=== PATIENT | female | born 1995 | race Caucasian/White ===

== ENCOUNTER 2020-01-20 16:11 | Emergency (ER) | payer OTHER ==
[2020-01-20 16:23] VITALS: BMI 24.2
--- NOTE | 2020-01-20 17:45 | PDOC ---
History of Present Illness - General Chief Complaint: Nausea/Vomiting Stated Complaint: ADB PAIN Time Seen by Provider: 01/20/20 17:45 History Source: Patient Exam Limitations: No Limitations - History of Present Illness Initial Comments: 01/20/20 17:58 24F with PMH of kidney stones presents to the ED with intermittent episodes of sharp/stabbing right sided abdominal pain that radiates to the right back/flank and started Wednesday. The episodes of pain are associated with nausea and vomiting. Denies fevers/chills, dysuria, diarrhea/constipation, abnormal vaginal bleeding or discharge. PMH: as in HPI SH: see below Meds: control Allergies: NKDA Tob/Etoh/Rec drugs: alcohol occasionally, neg x2 ROS GENERAL/CONSTITUTIONAL: No fever or chills. No weakness. HEENT: No change in vision. No ear pain or discharge. No sore throat. CARDIOVASCULAR: No chest pain or shortness of breath RESPIRATORY: No cough, wheezing, or hemoptysis. GASTROINTESTINAL: +nausea, vomiting; no diarrhea or constipation. GENITOURINARY: No dysuria, frequency, or change in urination. MUSCULOSKELETAL: No joint or muscle swelling or pain. No neck or back pain. SKIN: No rash NEUROLOGIC: No headache, vertigo, loss of consciousness, or change in strength/sensation. ENDOCRINE: No increased thirst. No abnormal weight change HEMATOLOGIC/LYMPHATIC: No anemia, easy bleeding, or history of blood clots. ALLERGIC/IMMUNOLOGIC: No hives or skin allergy. PE GENERAL: Awake, alert, and fully oriented; no acute distress HEAD: No signs of trauma, normocephalic, atraumatic EYES: PERRLA, EOMI, sclera anicteric, conjunctiva clear ENT: Auricles normal inspection, hearing grossly normal, nares patent, moist mucosa, oropharynx clear without exudates. NECK: Normal ROM, supple, no LAD, JVD, or masses HEART: Regular rate and rhythm, normal S1/S2, no murmurs, rubs or gallops, peripheral pulses normal and equal bilaterally. LUNGS: No distress, speaks full sentences, clear to auscultation bilaterally ABDOMEN: Soft, nontender. No guarding, no rebound. No masses. neg bonds sign, no cva tenderness EXTREMITIES: Normal inspection, Normal range of motion, no edema. No clubbing or cyanosis. NEUROLOGICAL: Normal speech, no focal sensorimotor deficits SKIN: Warm, Dry, normal turgor, no rashes or lesions noted Assessment and Plan 1. kidney stones 2. ovarian torsion Bryan Rose, PGY1 Emergency Medicine Past History - Medical History Allergies/Adverse Reactions: Allergies Allergy/AdvReac Type Severity Reaction Status Date / Time No Known Allergies Allergy Verified 01/20/20 16:20 Home Medications: Ambulatory Orders Cephalexin Monohydrate [Keflex -] 500 mg PO BID 7 Days #14 capsule 01/20/20 Ibuprofen 600 mg PO PRN PRN #10 tablet 01/20/20 Ondansetron HCl [Zofran] 4 mg PO PRN PRN #3 tablet 01/20/20 - Reproductive History Is Patient Now?: No - Psycho-Social/Smoking History Smoking History: Never smoked Have you smoked in the past 12 months: No - Substance Abuse Hx (Audit-C & DAST Scrn) How often the patient has a drink containing alcohol: Monthly or less Number of drinks the patient has on a typical day: 1 or 2 How often the patient has six or more drinks on one occasion: Never Score: In Men: 4 or > Positive; In Women: 3 or > Positive: 1 Screen Result (Pos requires Nsg. Audit-10AR): Negative In the last yr the pt used illegal drug/Rx for NonMed reason: No Score: Yes response is considered Positive: 0 Screen Result (Positive result requires Nsg. DAST-10): Negative *Physical Exam - Vital Signs Last Vital Signs Temp Pulse Resp BP Pulse Ox 98.9 F 75 18 107/76 100 01/20/20 16:20 01/20/20 16:20 01/20/20 16:20 01/20/20 16:20 01/20/20 16:20 ED Treatment Course - LABORATORY CBC & Chemistry Diagram: 01/20/20 18:11 01/20/20 18:11 Medical Decision Making - Medical Decision Making 01/20/20 20:12 24F with PMH of kidney stones presents to the ED with intermittent right-sided abdominal and flank pain. No CVA tenderness, abdominal exam unimpressive. Pt given 30mg IV toradol and 4mg IV zofran. DDx: 1. kidney stone -> given hx/o stones, pain location and intermittent quality, will assess with UA and renal US initially to avoid radiation from CT scan -> 3+ blood on UA 2. ovarian torsion -> eval with TVUS -> pt didn't conset to TVUS, transabdominal ultrasound was done -> normal doppler flow of right ovary 3. appendicitis -> right sided abd pain but unimpressive exam, afebrile 01/20/20 21:07 Pt reported improvement of pain/nausea after medication. 01/20/20 22:36 Renal US showed mild right sided hydronephrosis. Transabdominal pelvic US showed normal doppler flow of right ovary w/o masses. Left ovary was not visualized, so size discrepency of ovaries wasn't able to be assessed. However, in the con text of right sided hydronephrosis, it's more likely that her clinical presentation is due to kidney stone and not ovarian torsion. Appendicits is less likely as she's not febrile, abdominal exam was unimpressive, she's able to tolerate fluids PO, and responding to analgesics. The UA demonstrates >1700 bacteria, but with a significant amount of epithelial cells. This is not a reliable sample and the pt doesn't have clinically correlating symptoms of UTI, however, in the setting of likely kidney stone will tx with antibiotics. Pt was offered the opportunity to repeat UA or treat with antibiotics and chose the latter. Pt stable for d/c and was advised to follow up with urology. Discharge - Discharge Information Problems reviewed: Yes Clinical Impression/Diagnosis: Kidney stone Condition: Stable Disposition: HOME - Admission No - Additional Discharge Information Prescriptions: Ibuprofen 600 mg PO PRN PRN #10 tablet PRN Reason: Pain Cephalexin Monohydrate [Keflex -] 500 mg PO BID 7 Days #14 capsule Ondansetron HCl [Zofran] 4 mg PO PRN PRN #3 tablet PRN Reason: Nausea - Follow up/Referral Referrals: Alvaro Mooney MD [Staff Physician] - - Patient Discharge Instructions Patient Printed Discharge Instructions: DI for Kidney Stones Additional Instructions: You were seen in the ED for right sided abdominal and back pain. In the ED you were evaluated with urinalysis, blood work, and ultrasound. Your results showed right kidney hydronephrosis, blood and bacteria in the urine, and normal ovaries. Your pain was likely due to kidney stones. There does not appear to be an acute need for immediate hospitalization. You are advised to follow up with your Primary Care Physician within 1 week. You were given a referral to urologist, Dr. Mooney. You were given a prescription for ibuprofen 600mg, zofran, and keflex. Return to the ED immediately if you experience fevers, worsening nausea/vomiting and inability to tolerate drinking fluids. - Post Discharge Activity
[2020-01-20] MEDS ORDERED: KETOROLAC TROMETHAMINE 60 MG/2 ML VIAL IVPB ONE (18:07)
[2020-01-20] MEDS ORDERED: ONDANSETRON 4 MG/2 ML VIAL IVPUSH ONE (18:07)
[2020-01-20 18:10] LABS: HCG,QUALITATIVE URINE Negative
[2020-01-20] MEDS ORDERED: KETOROLAC TROMETHAMINE 30 MG/1 ML VIAL ONE (18:14)
[2020-01-20 18:56] LABS: BASO % 0.2 % (0-2.0); HEMATOCRIT 42.7 % (32.4-45.2); HEMOGLOBIN 14.3 GM/dL (10.7-15.3); MCH 28.6 pg (25.7-33.7); MCHC 33.5 g/dl (32.0-36.0); MEAN CELL VOLUME 85.6 fl (80-96); MEAN PLT VOLUME 9.3 fl (7.5-11.1); MONO % 6.6 % (3.8-10.2); NEUT % 86.2 % (42.8-82.8); PLATELET COUNT 310 K/MM3 (134-434); RBC 4.98 M/mm3 (3.60-5.2); RDW 12.8 % (11.6-15.6); WHITE BLOOD COUNT 14.7 K/mm3 (4.0-10.0)
[2020-01-20 19:07] LABS: BILIRUBIN,TOTAL 0.5 mg/dL (0.2-1); BLOOD UREA NITROGEN 18.2 mg/dL (7-18); POTASSIUM 3.7 mmol/L (3.5-5.1); TOT PROT 8.2 g/dl (6.4-8.2)
[2020-01-20 19:54] LABS: EPI CELLS >36 /uL (0-25.1); HYALINE CASTS 6 /uL (0-3.1); PH,URINE 5.5 (5.0-8.0); URINE APPEARANCE CLOUDY; URINE BACTERIA 1759 /uL (0-1359); URINE BILIRUBIN NEGATIVE (NEGATIVE); URINE COLOR DK YELLOW; URINE GLUCOSE (UA) NEGATIVE (NEGATIVE); URINE KETONE 3+ (NEGATIVE); URINE LEUK ESTERASE NEGATIVE (NEGATIVE); URINE NITRITE NEGATIVE (NEGATIVE); URINE PROTEIN 1+ (NEGATIVE); URINE RBC 15 /uL (0-23.9)
[2020-01-20] MEDS ORDERED: SODIUM CHLORIDE 1,000 ML IV STA (20:37)
--- NOTE | 2020-01-20 21:40 | PDOC ---
Documentation entered by Lola Cordon SCRIBE, acting as scribe for Rajinder Moore MD. Rajinder Moore MD: This documentation has been prepared by the tishibeBravo Ana, SCRIBE, under my direction and personally reviewed by me in its entirety. I confirm that the documentation accurately reflects all work, treatment, procedures, and medical decision making performed by me. Attending Attestation - Resident Resident Name: Bryan Rose - ED Attending Attestation I have performed the following: I have examined & evaluated the patient, The case was reviewed & discussed with the resident, I agree w/resident's findings & plan, Exceptions are as noted - HPI HPI: 01/20/20 18:09 Patient is a 24 year old female with a significant past medical history of kidney stones who presents to the ED with abdominal pain with associates nausea and vomiting x3 days. Patient described her pain as a "sharp, stabbing sensation" which is predominantly on her right side and radiates to her right flank and backside. Patient denies: any other related symptoms. Allergies: NKDA - Physicial Exam PE: 01/20/20 21:38 EXAMINATION CONSTITUTIONAL: Well-appearing; well-nourished; in no apparent distress HEAD: Normocephalic; atraumatic EYES: PERRL; EOM intact ENMT: External appears normal; normal oropharynx NECK: Supple; non-tender; no cervical lymphadenopathy CARD: Normal S1, S2; no murmurs, rubs, or gallops RESP: Normal chest excursion with respiration; breath sounds clear and equal bilaterally; no wheezes, rhonchi, or rales ABD: Soft, non-distended; non-tender; no palpable organomegaly, no palpable hernias; + mild r cva ttp EXT: Normal ROM in all four extremities; non-tender to palpation; distal pulses intact SKIN: Warm, dry, no rash NEURO: No focal neurological deficiencies. - Medical Decision Making 01/20/20 21:38 Patient is a well-appearing 24-year-old female with a history of nephrolithiasis who presents with atraumatic right-sided abdominal pain, intermittent, associated with numerous episodes of nonbloody, nonbilious vomiting for the past several days. In the ER, patient is awake and alert, afebrile, nontoxic- appearing, with minimal right CVA tenderness only. CBC reveals mild leukocytosis. UA reveals microscopic hematuria with presence of bacteria. Differential diagnosis includes kidney stone versus pyelonephritis versus ovarian torsion versus ovarian cyst versus acute appendicitis. Will obtain ultrasound of right kidney and pelvis. Will administer IV fluids. Will reassess. Discharge - Discharge Information Problems reviewed: Yes Clinical Impression/Diagnosis: Kidney stone Condition: Stable Disposition: HOME - Additional Discharge Information Prescriptions: Ibuprofen 600 mg PO PRN PRN #10 tablet PRN Reason: Pain Cephalexin Monohydrate [Keflex -] 500 mg PO BID 7 Days #14 capsule Ondansetron HCl [Zofran] 4 mg PO PRN PRN #3 tablet PRN Reason: Nausea - Follow up/Referral Referrals: Alvaro Mooney MD [Staff Physician] - - Patient Discharge Instructions Patient Printed Discharge Instructions: DI for Kidney Stones Additional Instructions: You were seen in the ED for right sided abdominal and back pain. In the ED you were evaluated with urinalysis, blood work, and ultrasound. Your results showed right kidney hydronephrosis, blood and bacteria in the urine, and normal ovaries. Your pain was likely due to kidney stones. There does not appear to be an acute need for immediate hospitalization. You are advised to follow up with your Primary Care Physician within 1 week. You were given a referral to urologist, Dr. Mooney. You were given a prescription for ibuprofen 600mg, zofran, and keflex. Return to the ED immediately if you experience fevers, worsening nausea/vomiting and inability to tolerate drinking fluids. - Post Discharge Activity
[2020-01-20 22:32] LABS: URINE WBC 71.8 /uL (0-25.8)
[2020-01-20 22:33] LABS: URINE CRYSTALS FEW /hpf
[2020-01-20 22:53] VITALS: BP 110/67; PULSE 86; TEMP 98
== END 2020-01-20 23:08 | disposition home or self-care (01) ==
LOC: JER 16:11
PROC: 3E0333Z Introduction of Anti-inflammatory into Peripheral Vein, Percutaneous Approach (ICD-10-PCS; principal; 2020-01-20)
PROC: 3E033GC Introduction of Other Therapeutic Substance into Peripheral Vein, Percutaneous Approach (ICD-10-PCS; 2020-01-20)
PROC: 3E0337Z Introduction of Electrolytic and Water Balance Substance into Peripheral Vein, Percutaneous Approach (ICD-10-PCS; 2020-01-20)
DX: N20.0 Calculus of kidney (principal)
CPT/HCPCS: 36415; 76775-TC; 76856-TC; 80053; 81003; 84703; 85025; 99285-25

== ENCOUNTER 2022-06-29 04:13 | Day surgery (SDC) | payer BC ==
[2022-06-25 09:29] VITALS: BMI 24.9
[2022-06-29] MEDS ORDERED: ONDANSETRON 4 MG/2 ML VIAL ONE (13:44)
[2022-06-29] MEDS ORDERED: MIDAZOLAM HCL 2 MG/2 ML SINGLE DOSE VIAL ONE (13:44)
[2022-06-29 14:34] VITALS: RESP 18
[2022-06-29 15:07] VITALS: BP 100/60; PULSE 80; TEMP 98.3
== END 2022-06-29 15:30 | disposition home or self-care (01) ==
LOC: JASU-SURG 04:13
PROVIDERS: ATTEND Urology
PROC: 0TF3XZZ Fragmentation in Right Kidney Pelvis, External Approach (ICD-10-PCS; principal; 2022-06-29 12:00)
DX: N20.0 Calculus of kidney (principal)
CPT/HCPCS: 81025